=== PATIENT | male | born 1970 | race Caucasian/White ===

== ENCOUNTER 2024-06-17 00:06 | Inpatient (IN) | payer SELFPAY ==
[2024-06-17] MEDS ORDERED: Ondansetron ODT 4 MG TAB PO PRN (02:45)
[2024-06-17] MEDS ORDERED: Heparin 10,000 UNITS/ 10 ML VIAL SLOW IVP SCH (02:45)
[2024-06-17] MEDS ORDERED: Acetaminophen 650 MG Suppository PR PRN (02:45)
[2024-06-17 02:47] VITALS: BMI 27.0
[2024-06-17] MEDS ORDERED: Heparin 25,000 units/D5W 500 ML IVPB SCH (03:00)
[2024-06-17] MEDS: Acetaminophen 325 MG TAB PO PRN (03:04)
[2024-06-17] MEDS: Nitroglycerin 0.4 MG TAB (25 Tab Bottle) SL PRN (03:09)
[2024-06-17 03:18] LABS: #Basophils 0.05 10x3/uL (0.0-0.2); %Basophils 0.3 % (0.0-1.0); %Eosinophils 1.9 % (0.0-10.0); %Lymphocytes 28.7 % (21.0-51.0); %Neutrophils 63.7 % (42.0-75.0); Hemoglobin 15.6 g/dL (14.0-18.0); Mean Corpuscular HGB CONC 34.7 g/dL (32.0-36.0); Mean Corpuscular Hemoglobin 29.9 pg (27.0-31.0); Mean Corpuscular Volume 86.4 fL (78.0-98.0); Mean Platelet Volume 9.4 fL (7.4-10.4); Platelet Count 262 10x3/uL (130-400); RBC Distribution Width 11.8 % (11.5-14.5); Red Blood Cell (RBC) Count 5.21 mill/uL (4.70-6.10)
[2024-06-17] MEDS: Morphine 4 MG/ML VIAL SLOW IVP PRN (03:34)
[2024-06-17] MEDS: Ondansetron PF 4 MG/2 ML Vial IVP PRN (03:38)
[2024-06-17 03:44] LABS: Anion Gap 16 mmol/L (10-20); BUN (Urea Nitrogen) 15 mg/dL (8.4-25.7); Calc. Creatinine Clearance 124 mL/min (70-130); Carbon Dioxide 21 mmol/L (22-29); Chloride 102 mmol/L (98-107); Cholesterol 192 mg/dl (< 200 Desired); Estimated GFR 105; Glucose 257 mg/dL (70-105); HDL Cholesterol 48 mg/dL (>60 Neg Risk); LDL Cholesterol, Calculated 130 mg/dL; Potassium 3.5 mmol/L (3.5-5.1); Sodium 135 mmol/L (136-145); Triglycerides 72 mg/dL (Less than 150)
[2024-06-17 04:33] LABS: Troponin I 0.255 ng/mL (< 0.028)
[2024-06-17 07:08] LABS: Troponin I 0.443 ng/mL (< 0.028)
[2024-06-17] MEDS ORDERED: CATH FS SCH (09:00)
[2024-06-17] MEDS: Sodium Chloride 0.9% 1,000 ML IV SCH (10:38)
[2024-06-17] MEDS: Aspirin Chewable 81 MG TAB PO SCH (10:39)
[2024-06-17] MEDS: Famotidine/PF 20 mg/2ml Vial SLOW IVP SCH (10:39)
[2024-06-17] MEDS: Famotidine 20 MG TAB PO SCH (10:40)
[2024-06-17] MEDS ORDERED: Nitroglycerin 50 MG/250 ML BOT 250 ML ONE (11:45)
[2024-06-17] MEDS ORDERED: Heparin 10,000 UNITS/ 10 ML VIAL ONE (11:45)
[2024-06-17] MEDS ORDERED: Dextrose 5% in Water 1,000 ML IV PRN (12:41)
[2024-06-17] MEDS ORDERED: Dextrose 50% Abboject 50 ML SYRINGE SLOW IVP PRN (12:41)
[2024-06-17] MEDS ORDERED: Glucagon 1 MG/ML KIT IM PRN (12:41)
[2024-06-17] MEDS ORDERED: fentaNYL 50 mcg/mL 1 mL Vial ONE ×2 (13:00→13:06)
[2024-06-17] MEDS ORDERED: Midazolam HCl 2 mg/2 ml Vial ONE (13:00)
[2024-06-17] MEDS ORDERED: Iopamidol 370 76% 100 ML VIAL ONE (13:44)
[2024-06-17] MEDS ORDERED: Clopidogrel Bisulfate 300 MG TAB ONE (13:57)
[2024-06-17] MEDS ORDERED: Ondansetron PF 4 MG/2 ML Vial ONE (14:09)
[2024-06-17] MEDS ORDERED: Acetaminophen/Codeine 30-300mg Tablet PO PRN (14:12)
[2024-06-17] MEDS: Calcium Carbonate 500 MG ChewTAB PO PRN (15:34)
[2024-06-17] MEDS: traMADol HCl 50 MG TAB PO PRN (15:34)
[2024-06-17] MEDS: Sodium Chloride 0.9% 500 ML IV SCH (19:54)
[2024-06-17] MEDS: Atorvastatin Calcium 40 MG TAB PO SCH (19:55)
[2024-06-17] MEDS: Insulin Lispro 100 UNIT/ML 10 ML VIAL SC PRN (22:40)
[2024-06-17 23:11] LABS: Amphetamine Detected (NotDetected); Barbiturates Screen Not Detected (NotDetected); Benzodiazepine Screen Not Detected (NotDetected); Cocaine Metabolite Screen Not Detected (NotDetected); Methadone Not Detected (NotDetected); Methamphetamine Detected (NotDetected); Opiate Screen Detected (NotDetected); Oxycodone Screen Not Detected (NotDetected); Phencyclidine (PCP) Not Detected (NotDetected); THC/Cannabinoid Screen Detected (NotDetected); Tricyclic Screen Not Detected (NotDetected)
[2024-06-18 05:03] LABS: #Basophils 0.03 10x3/uL (0.0-0.2); %Basophils 0.2 % (0.0-1.0); %Eosinophils 3.2 % (0.0-10.0); %Lymphocytes 24.8 % (21.0-51.0); %Monocytes 7.5 % (0.0-10.0); Hematocrit 47.9 % (42.0-52.0); Hemoglobin 16.5 g/dL (14.0-18.0); Mean Corpuscular HGB CONC 34.4 g/dL (32.0-36.0); Mean Corpuscular Volume 87.1 fL (78.0-98.0); Mean Platelet Volume 9.5 fL (7.4-10.4); Platelet Count 263 10x3/uL (130-400)
[2024-06-18 05:05] LABS: Hematocrit 48.2 % (42.0-52.0); Hemoglobin 16.4 g/dL (14.0-18.0); Mean Corpuscular Hemoglobin 29.7 pg (27.0-31.0); Mean Corpuscular Volume 87.2 fL (78.0-98.0); Mean Platelet Volume 9.6 fL (7.4-10.4); Platelet Count 261 10x3/uL (130-400); RBC Distribution Width 11.9 % (11.5-14.5); Red Blood Cell (RBC) Count 5.53 mill/uL (4.70-6.10)
[2024-06-18 05:27] LABS: ALT (SGPT) 33 U/L (Less than 45); AST (SGOT) 53 U/L (11-34); Albumin 3.7 g/dL (3.1-4.5); Alkaline Phosphatase 81 U/L (40-110); Anion Gap 15 mmol/L (10-20); BUN (Urea Nitrogen) 13 mg/dL (8.4-25.7); Bilirubin, Total 0.8 mg/dL (0.3-1.2); Calc. Creatinine Clearance 125 mL/min (70-130); Calcium 9.1 mg/dL (7.8-10.44); Carbon Dioxide 23 mmol/L (22-29); Chloride 103 mmol/L (98-107); Estimated GFR 106; Globulin 3.9 g/dL (2.4-3.5); Glucose 176 mg/dL (70-105); Potassium 3.9 mmol/L (3.5-5.1); Protein, Total 7.6 g/dL (6.0-8.3); Sodium 137 mmol/L (136-145)
[2024-06-18 05:40] VITALS: BP 130/72; TEMP 97.6
[2024-06-18] MEDS ORDERED: Clopidogrel Bisulfate 75 MG TAB PO SCH (09:00)
== END 2024-06-18 07:30 | disposition left against medical advice (07) | DRG 322 ==
LOC: OBSVTOIN 00:06 → 2NO 00:06
PROVIDERS: ADMIT Student in an Organized Health Care Education/Training Program; ATTEND Internal Medicine
PROC: 4A023N7 Measurement of Cardiac Sampling and Pressure, Left Heart, Percutaneous Approach (ICD-10-PCS; principal; 2024-06-17)
PROC: 027034Z Dilation of Coronary Artery, One Artery with Drug-eluting Intraluminal Device, Percutaneous Approach (ICD-10-PCS; 2024-06-17)
PROC: B2151ZZ Fluoroscopy of Left Heart using Low Osmolar Contrast (ICD-10-PCS; 2024-06-17)
PROC: B2111ZZ Fluoroscopy of Multiple Coronary Arteries using Low Osmolar Contrast (ICD-10-PCS; 2024-06-17)
DX: I21.4 Non-ST elevation (NSTEMI) myocardial infarction (principal); I25.10 Atherosclerotic heart disease of native coronary artery without angina pectoris; E11.9 Type 2 diabetes mellitus without complications; I10 Essential (primary) hypertension; Z95.5 Presence of coronary angioplasty implant and graft; F17.210 Nicotine dependence, cigarettes, uncomplicated; Z79.82 Long term (current) use of aspirin; Z79.899 Other long term (current) drug therapy
CPT/HCPCS: 36415; 36416; 80048; 80053; 80061; 80306; 84484; 85025; 85027; 85347; 85730; 92928; 93005; 93010; 93458; 99152; 99153; C1725; C1760; C1769; C1874; C1887; C9600; J1644; J1815; J2250; J2270; J2405; J3010; J3490; J7030; Q9967